=== PATIENT | male | born 1990 | race African-American/Black ===

== ENCOUNTER 2020-01-15 14:48 | Emergency (ER) | payer OTHER ==
[~2020-01-15] VITALS: Ht 172.7 cm; Wt 90.7 kg
[2020-01-15] MEDS ORDERED: BLOOD THINNER (15:03)
[2020-01-15] MEDS ORDERED: ASA81BEC PO (15:03)
[2020-01-15] MEDS ORDERED: IBUPROFEN 800800 M1 PO (15:22)
[2020-01-15] MEDS ORDERED: FLEXERIL PO (15:22)
[2020-01-15 16:35] VITALS: BP 141/78
== END 2020-01-15 16:36 | disposition home or self-care (01) ==
LOC: M.ERS 14:48
DX: S06.0X0A Concussion without loss of consciousness, initial encounter (principal); S16.1XXA Strain of muscle, fascia and tendon at neck level, initial encounter; Z86.73 Personal history of transient ischemic attack (TIA), and cerebral infarction without residual deficits; V43.62XA Car passenger injured in collision with other type car in traffic accident, initial encounter; Y93.89 Activity, other specified; Y92.89 Other specified places as the place of occurrence of the external cause; Y99.8 Other external cause status

== ENCOUNTER 2020-01-26 13:02 | Emergency (ER) | payer OTHER ==
[~2020-01-26] VITALS: Ht 175.3 cm; Wt 97.5 kg
[~2020-01-26 13:02] MED LIST: ASA81BEC PO; BLOOD THINNER; FLEXERIL PO; IBUPROFEN 800800 M1 PO
[2020-01-26 13:20] VITALS: BP 132/78
[2020-01-26] MEDS ORDERED: APAP W/CODEINE1 TA2 PO (13:28)
== END 2020-01-26 13:36 | disposition home or self-care (01) ==
LOC: M.ERS 13:02
DX: M54.5 Low back pain (principal); M62.830 Muscle spasm of back